=== PATIENT | female | born 1975 | race Caucasian/White ===

== ENCOUNTER 2016-10-06 07:05 | Emergency (ER) | payer OTHER ==
[2016-10-06 07:10] VITALS: BP 98/72; BMI 33.3
--- NOTE | 2016-10-06 07:36 | DR.SORETHR ---
HPI - Time Seen Time seen: 07:31 - Primary Care Physician Primary Care Physician: WILY - HPI Comment HPI Comment: PATIENT LIKE THROAT IS SWOLLEN. HOARSENESS AND DYSPHAGIA PRESENT. - Complaints Chief Complaint Doctors Comments: SORE THROAT TIMES 3 DAYS. Chief Complaint:: PT. C/O FEELING LIKE HER AIRWAY IS SWOLLEN AND SHE CAN BARELY TALK. PT. SAYS HER THROAT IS RED - Reviewed Nurses Notes Reviewed: Yes - Source History Provided: Patient - Mode of Arrival Mode of Arrival: Ambulatory - Timing Onset of Chief Complaint: 10/03/16 - Context Exposed to:: None Symptoms:: Hoarse - Location Location:: Bilateral, Throat - Severity Pain Severity: Moderate - Associated Signs and Symptoms Associated Signs and Symptoms: Cough PMH - PMH Past Medical History: Yes Past Medical History: Anxiety Past Medical History Comment: BIPOLAR, MELANOMA SKIN CANCER Past Surgical History: Yes Surgical History: Hysterectomy, Other Past Surgical History Comment: BACK SURGERY - Family History History of Family Medical Conditions: No - Social History Does patient currently use any type of tobacco product: Yes Have you used tobacco products in the last 12 months: Yes Type of Tobacco Use: Cigarettes Does any household member use tobacco: No Alcohol Use: None Do you use any recreational Drugs:: No Lives With: Dad Lives Where: Home - infectious screening In the last 2 months have you had wt loss of >10#?: NO Have you had fever, night sweats or hemotysis?: No Have you traveled outside the country in the last 6 months?: No Isolation: Standard ROS - Review of Systems Constitutional: No Symptoms Reported. negative: Chills, Fever Eyes: No Symptoms Reported. negative: Eye Pain, Discharge ENTM: Mouth Pain, Throat Pain. negative: Ear Pain, Nose Discharge, Nose Congestion Respiratoy: Non-Productive Cough. negative: Short of Breath, Wheezing, Hemoptysis Cardiovascular: No Symptoms Reported. negative: Chest Pain Gastrointestinal/Abdominal: No Symptoms Reported. negative: Abdominal Pain, Diarrhea, Nausea, Vomiting Genitourinary: No Symptoms Reported. negative: Dysuria, Frequency, Hematuria Neurological: Headache Musculoskeletal: Muscle Pain Integumentary: No Symptoms Reported Hematologic/Lymphatic: No Symptoms Reported Endocrine: No Symptoms Reported All Other Systems: Reviewed and Negative PE - Vital Signs Vitals: Temperature 98.4 F Pulse Rate 107 Respiratory Rate 17 Blood Pressure 98/72 O2 Sat by Pulse Oximetry 99 - General Limitations: No Limitations General Appearance: Alert - Head Head Exam: Normal Inspection - Eyes Eye exam: Normal Appearance - ENT ENT Exam: Normal External Ear Exam External Ear Exam: Normal External Inspection TM/Canal Exam: Bilateral Normal Nose Exam: Normal Nose Exam Mouth Exam: Normal Inspection Throat Exam: Tonsillar Erythema, Tonsillomegaly. negative: Tonsillar Exudate - Neck Neck Exam: Trachea Midline. negative: Tenderness, Meningismus, Lymphadenopathy - Respiratory Respiratory Exam: Normal Lung Sounds Bilat Respiratory Exam: Bilateral Clear to Auscultation - Cardiovascular Cardiovascular Exam: Regular Rate, Normal Rhythm, Normal Heart Sounds - Abdominal Exam Abdominal Exam: Soft, Distention. negative: Tenderness - Extremities Extremities Exam: Normal Inspection - Back Back Exam: Normal Inspection - Neurologic Neurological Exam: Alert, Oriented X3, CN II-XII Intact. negative: Motor Sensory Deficit - Skin Skin Exam: Normal Color Description: Tenderness MDM - Additional Information Obtained Additional Information Obtained From: Family - Differential Diagnosis Differential Diagnosis: Streptococcal Pharyngitis, Viral Pharyngitis, URI Course - Treatment Treatment: SEE ORDERS. - Reevaluation 1st: Improved (IM MEDS IMPROVE PAIN IN ED.) - Education/Counseling Education/Counseling: Patient, Education Educated On: Diagnosis, Needs for Follow Up ROR - Labs Reviewed Laboratory Results Reviewed?: Yes Laboratory: Streptococcus Screen Negative (NEGATIVE) 10/06/16 07:42 - Diagnosis Discharge Problem: Laryngitis Pharyngitis Qualifiers: Pharyngitis/tonsillitis etiology: other specified organisms Qualified Code(s): J02.8 - Acute pharyngitis due to other specified organisms Dysphagia Qualifiers: Dysphagia type: unspecified Qualified Code(s): R13.10 - Dysphagia, unspecified - Discharge Plan Disposition: 01 HOME, SELF-CARE Condition: Stable Prescriptions: Acetaminophen/Codeine Tab [TYLENOL w/CODEINE #3 (300 MG/30 MG) *] 1 tab PO Q4- 6H PRN #15 tab PRN Reason: Pain Azithromycin [Zithromax Z-Walter 5-day] 1 dose PO DAILY #6 tab Lidocaine/Benadryl/Maalox [Magic Mouthwash] 10 ml MT TID PRN #180 ml PRN Reason: MOUTH/THROAT PAIN - Follow ups/Referrals Follow ups/Referrals: NFD,None [Primary Care Provider] - 3 days - Instructions Instructions: Dysphagia, Pharyngitis, Hoarseness, Laryngitis, [id number] Additional Instructions: RETURN TO ED IF WORSE.
[2016-10-06] MEDS ORDERED: TORADOL 60 MG VIAL IM ONE (07:37)
[2016-10-06] MEDS ORDERED: DECADRON INJ IM ONE (07:37)
[2016-10-06] MEDS ORDERED: DECADRON INJ ONE (07:55)
== END 2016-10-06 08:19 | disposition home or self-care (01) ==
LOC: ER 07:23
DX: J04.0 Acute laryngitis (principal); J02.8 Acute pharyngitis due to other specified organisms; R13.10 Dysphagia, unspecified
CPT/HCPCS: 87070; 87880; 96372; 99282; J1100; J1885

== ENCOUNTER 2017-04-21 11:38 | Emergency (ER) | payer MEDICAID, OTHER ==
[2017-04-21 11:44] VITALS: BMI 32.9
[2017-04-21 11:46] VITALS: BP 124/84
[2017-04-21] MEDS ORDERED: TORADOL 60 MG VIAL IM ONE (12:33)
--- NOTE | 2017-04-21 12:33 | DR.GENAD ---
HPI - PCP Primary Care Physician: SHORTY - Complaint/Symptoms Chief Complaint Doctors Comments: Patient denies a history of otitis media. She denies fever or vomiting. Chief Complaint:: "I WOKE UP WITH A EARACHE AND I THINK I HAVE A KIDNEY INFECTION." Self Treatment fo Chief Complaint: ULTRAM - Source History Provided: Patient - Mode of Arrival Mode of Arrival: Ambulatory - Timing Onset of Chief Complaint: 04/21/17 PMH - PMH Past Medical History: Yes Past Medical History: Anxiety, Depression Past Surgical History: Yes Surgical History: Hysterectomy, Other - Family History History of Family Medical Conditions: No - Social History Does patient currently use any type of tobacco product: Yes Have you used tobacco products in the last 12 months: Yes Type of Tobacco Use: Cigarettes How many years tobacco product used: 10 Does any household member use tobacco: Yes Alcohol Use: None Do you use any recreational Drugs:: No Lives With: Family Lives Where: Home - infectious screening In the last 2 months have you had wt loss of >10#?: NO Have you had fever, night sweats or hemotysis?: No Have you traveled outside the country in the last 6 months?: No Isolation: Standard ROS - Review of Systems Eyes: No Symptoms Reported ENTM: Ear Pain (left), Pulling on Ears. negative: Ear Discharge Respiratoy: No Symptoms Reported Cardiovascular: No Symptoms Reported Gastrointestinal/Abdominal: No Symptoms Reported Genitourinary: No Symptoms Reported Neurological: No Symptoms Reported Musculoskeletal: No Symptoms Reported Integumentary: No Symptoms Reported Hematologic/Lymphatic: No Symptoms Reported Endocrine: No Symptoms Reported Psychiatric: No Symptoms Reported All Other Systems: Reviewed and Negative PE - Vital Signs Vitals: Temperature 98.6 F Pulse Rate 94 Respiratory Rate 20 Blood Pressure 124/84 O2 Sat by Pulse Oximetry 100 - General General Appearance: Alert, In No Apparent Distress - Head Head Exam: Normal Inspection, Atraumatic - Eyes Eye exam: PERRL, EOMI - ENT ENT Exam: Normal Exam, Normal Oropharynx External Ear Exam: Normal External Inspection TM/Canal Exam: Bilateral Normal Nose Exam: Normal Nose Exam Mouth Exam: Normal Inspection Throat Exam: Normal Inspection - Neck Neck Exam: Normal Inspection, Full ROM - Chest Chest Inspection: Normal Inspection, Symmetric Chest Wall Rise - Respiratory Respiratory Exam: Normal Lung Sounds Bilat Respiratory Exam: Bilateral Clear to Auscultation - Cardiovascular Cardiovascular Exam: Regular Rate - Abdominal Exam Abdominal Exam: Normal Inspection, Normal Bowel Sounds Abdominal Tenderness: negative: RUQ, RLQ, LUQ, LLQ, Epigastrium, Suprapubic, Diffuse, Mild, Moderate, Severe, Other - Extremities Extremities Exam: Normal Inspection, Full ROM - Back Back Exam: Normal Inspection - Neurologic Neurological Exam: Alert, Oriented X3, CN II-XII Intact - Psychiatric Psychiatric Exam: Normal Affect - Skin Skin Exam: Warm, Intact Course - Treatment Treatment: Toradol IM - Reevaluation 1st: Improved - Diagnosis Discharge Problem: Otitis externa Qualifiers: Otitis externa type: diffuse Chronicity: acute Laterality: left Qualified Code( s): H60.312 - Diffuse otitis externa, left ear - Discharge Plan Condition: Stable - Follow ups/Referrals Follow ups/Referrals: Cristina Bruno [Primary Care Provider] - 3 days - Instructions
[2017-04-21] MEDS ORDERED: TORADOL 60 MG VIAL ONE (12:36)
[2017-04-21 12:58] LABS: BILIRUBIN,URINE NEGATIVE (NEGATIVE); BLOOD/HEMOGLOBIN,URINE 1+ (NEGATIVE); GLUCOSE, URINE NEGATIVE (NEGATIVE); KETONES,URINE NEGATIVE (NEGATIVE); LEUKOCYTE ESTERASE ,URINE NEGATIVE (NEGATIVE); NITRITES,URINE NEGATIVE (NEGATIVE); PROTEIN,URINE NEGATIVE (NEGATIVE); UROBILINOGEN,URINE NORMAL (NORMAL)
[2017-04-21 13:12] LABS: APPEARANCE,URINE CLEAR (CLEAR); COLOR,URINE YELLOW (YELLOW); RBC,URINE 0-2 /HPF (NEGATIVE); SQUAMOUS EPITHELIAL CELL,UR RARE /HPF (NEGATIVE)
[2017-04-21 13:13] LABS: BACTERIA,URINE NEGATIVE /HPF (NEGATIVE)
== END 2017-04-21 13:23 | disposition home or self-care (01) ==
LOC: ER 12:16
DX: H60.312 Diffuse otitis externa, left ear (principal)
CPT/HCPCS: 81001; 96372; 99282; J1885